=== PATIENT | female | born 1945 | race Two or more races ===

== ENCOUNTER 2017-03-13 17:31 | Emergency (ER) | payer OTHER ==
[2017-03-13 17:42] VITALS: BP 143/90; PULSE 71; TEMP 97.9; BMI 20.3
[2017-03-13] MEDS ORDERED: ACETAMINOPHEN 325 MG TABLET (FP) PO ONE (17:43)
--- NOTE | 2017-03-13 17:43 | PDOC ---
Rapid Medical Evaluation Chief Complaint: Lightheaded Time Seen by Provider: 03/13/17 17:41 Medical Evaluation: 03/13/17 17:41 I have performed a brief in-person evaluation of this patient. The patient presents with a chief complaint of: pain on right side of head after fall from bed Monday. Patient reports feeling dizzy today and loss of vision briefly. Complaining of lightheadedness Pertinent physical exam findings: HEENT: small superficial scabbed over lesion to right occiput PERRL NAD unlabored breathing I have ordered the following: analgesia, ekg The patient will proceed to the ED for further evaluation.
--- NOTE | 2017-03-13 19:27 | PDOC ---
Attending Attestation - HPI HPI: 03/13/17 21:14 with complaints of of lightheadedness s/p fall that occured monday afternoon. Patient reports laying down in her bed to go sleep when she lost her balance and feel off of the bed hitting the right backside of her head causing immediate pain. Patient states feeling fine after incident and was able to walk and cook herself meals. Patient reports experiencing blurred vision this afternoon while at home that began to worry her, prompting her to come to the ED for further evaluation. Patient is a Rastafari and states she will not take any blood products. Denies loss of consciousness. Denies chest pain, SOB. Denies nausea, vomiting. Denies fevers, chills. Denies any other symptoms. Allergies:None Social history: No smoking. No alcohol. No illicit drugs. Surgical history: Right shoulder surgeries. PMD: Dr. Keith Rincon - Physicial Exam PE: 03/13/17 21:14 Vitals: Triage Vital signs reviewed General Appearance: no acute distress, well nourished well developed Head: Atraumatic Eyes: Pupils equal reactive round, extraocular movement intact Chest Wall: Nontender Cardiac: Regular rate and rhythm, no murmurs, no rubs, no gallops Lungs: Clear to auscultation bilateral, good air movement bilaterally Abdomen: Soft, non distended, normal bowel sounds, non tender to palpation Extremities: Full range of motion to all extremities, no cyanosis, clubbing, or edema Skin: Warm and dry, no rashes or lesions, no rash, no petechiae Neuro: AOX3; Cranial Nerves 2-12 grossly intact, Strength intact to all extremities, Sensation intact to all extremities, gait normal Psych: Normal mood, normal affect - Medical Decision Making 03/13/17 21:14 Documentation prepared by Louie Cortez, acting as medical parasitologist for Josh Gillette MD, MD/DO. <Louie Cortez - Last Filed: 03/13/17 21:13> - Resident Resident Name: Priscila Beckham - ED Attending Attestation I have performed the following: I have examined & evaluated the patient, The case was reviewed & discussed with the resident, I agree w/resident's findings & plan, Exceptions are as noted - Medical Decision Making Well-appearing no apparent distress normal neurologic examination minor head trauma approximately 3 days ago today with very brief 1-2 minute episode of blurry vision resolved. Asymptomatic at this time. ABCD to risk stratification score very low risk. Patient provided with neurology follow-up No acute intervention needed at this time Findings, the need for follow-up and strict return instructions discussed with patient. 03/14/17 01:10 <Josh Gillette - Last Filed: 03/14/17 01:11>
--- NOTE | 2017-03-13 19:49 | PDOC ---
History of Present Illness - General Chief Complaint: Lightheaded Stated Complaint: Fall on Monday head trauma, dizziness Time Seen by Provider: 03/13/17 17:41 History Source: Patient Exam Limitations: No Limitations - History of Present Illness Initial Comments: This is a 71 YOF with h/o osteoarthritis and osteoporosis who p/w right posterior head pain s/p fall from bed three days ago with ongoing mild lightheadedness since that time as well as a fleeting episode of blurry vision this afternoon which she has never had before. She describes the fall as mechanical: she was getting ready to go to sleep for the night, sat up from laying down, accidentally lost her balance and fell forward, and fell to the floor, hitting the back of her head on the right side. She had no preceding symptoms, did not lost consciousness, was able to pick herself up and walk normally afterward, and has been able to eat, drink, shower, and otherwise perform her ADLs normally since then. Her family and friend say she has been acting normally per her baseline since then. She has had constant 2/10 pain to the area since that time and has taken Tylenol and rubbed Enzo's VapoRub on it. She denies any numbness, tingling, weakness, neck pain, chest pain, abdominal pain, palpitations, SOB, nausea, vomiting, black/bloody stool, or other recent symptoms. She did not see a doctor or other medical provider after the incident. She just started taking Meloxicam for shoulder pain and also takes gabapentin, but these are morning medications and were taken many hours before the fall three days ago. Past History - Past Medical History Allergies/Adverse Reactions: Allergies Allergy/AdvReac Type Severity Reaction Status Date / Time No Known Allergies Allergy Verified 03/13/17 17:42 COPD: No GI Disorders: Yes Other medical history: Osteoposis - Suicide/Smoking/Psychosocial Hx Smoking History: Never smoked Information on smoking cessation initiated: No Hx Alcohol Use: No Drug/Substance Use Hx: No Substance Use Type: None Review of Systems - Review of Systems Able to Perform ROS?: Yes Constitutional: No: Chills, Fever, Unexplained wgt Loss HEENTM: Yes: Blurred Vision (resolved). No: Nose Congestion, Throat Pain Respiratory: No: Cough, Shortness of Breath Cardiac (ROS): No: Chest Pain, Palpitations ABD/GI: No: Abdominal Distended, Nausea, Vomiting, Abdominal cramping : No: Burning, Dysuria Musculoskeletal: No: Back Pain, Neck Pain Integumentary: No: Bruising, Rash Neurological: Yes: Headache (right posterior), Other (lightheaded). No: Numbness, Tingling, Weakness Endocrine: No: Unexplained Weight Gain, Unexplained Weight Loss *Physical Exam - Vital Signs Last Vital Signs Temp Pulse Resp BP Pulse Ox 97.9 F 71 19 143/90 99 03/13/17 17:40 03/13/17 17:40 03/13/17 17:40 03/13/17 17:40 03/13/17 17:40 - Physical Exam General Appearance: Yes: Nourished, Appropriately Dressed, Other (very pleasant , mentally sharp, and appropriate older adult female in no distress, accompanied by a daughter and friend, Italian-speaking only, very well-appearing ). No: Apparent Distress HEENT: positive: EOMI, VIDAL, Normal Voice, Hearing Grossly Normal, Other (small right posterior inferior scalp contusion, no cephalohematoma, no pineda sign, no raccoon eyes, no hemotympanum, no CSF rhinorrhea or otorrhea). negative: Scleral Icterus (R), Scleral Icterus (L), Nasal Congestion Neck: positive: Trachea midline, Supple. negative: Tender, Rigid Respiratory/Chest: positive: Lungs Clear, Normal Breath Sounds. negative: Respiratory Distress, Crackles, Rhonchi, Stridor, Wheezing Cardiovascular: positive: Regular Rhythm, Regular Rate. negative: Murmur Gastrointestinal/Abdominal: positive: Normal Bowel Sounds, Soft. negative: Tender, Organomegaly, Pulsatile Mass, Guarding Musculoskeletal: positive: Normal Inspection. negative: Decreased Range of Motion, Vertebral Tenderness Extremity: positive: Normal Capillary Refill, Normal Inspection, Normal Range of Motion. negative: Tender, Cyanosis Integumentary: positive: Normal Color, Dry, Warm. negative: Erythema, Rash, Bruising Neurologic: positive: front desk attendant II-XII NML intact, Fully Oriented, Alert, Normal Mood/ Affect, Normal Response, Motor Strength 5/5, Other (no nystagmus on extreme lateral gaze, no truncal ataxia, negative Romberg, normal [id number], normal gait (walks backward without issue as well)). negative: EOM Palsy, Facial Droop, Numbness, Confused, Disoriented ED Treatment Course - LABORATORY CBC & Chemistry Diagram: 03/13/17 20:00 03/13/17 20:00 Medical Decision Making - Medical Decision Making 71 YOF with h/o osteoarthritis and osteoporosis who p/w right posterior head pain s/p fall from bed three days ago. Has persistent but mild lightheadedness since that time, also fleeting episode of blurred vision this afternoon. On exam VS wnl and she is A/Ox4, very well-appearing, no distress, small scalp contusion. DDX IBNLT SAH/SDH, concussion, scalp contusion, basilar skull fracture, etc. Ordered is CBCD, BMP, UA cx, EKG, head CT. 03/13/17 21:25 Lab work without any concerning acute findings or e/o infection or electrolyte derangement. Head CT is negative for acute bleed, obvious fracture, or other intracranial pathology. EKG without acute ischemic change, arrhythmia, or other concerning findings. The patient's repeat neurological exam is wnl. She is appropriate for DC home with close OP followup. Return precautions are discussed with patient and her family and neighbor. *DC/Admit/Observation/Transfer Diagnosis at time of Disposition: Fall from bed, initial encounter, Lightheadedness - Discharge Dispostion Disposition: HOME Condition at time of disposition: Stable Admit: No - Referrals Referrals: Keith Rincon PA [Primary Care Provider] - Melvin Dillard MD [Staff Physician] - - Patient Instructions Printed Discharge Instructions: DI for Concussion Additional Instructions: You were seen in the ER for lightheadedness, scalp pain, and a short episode of blurry vision about three days after a fall from bed during which you hit the back of your head. We did blood and urine labs, an electrocardiogram, and a head CT which were all normal. Please follow up with your regular doctor, or if you have continued symptoms you can follow up with a neurologist (we are providing referral information for Dr. Dillard's clinic). Please return to the ER for any new or worsening symptoms, especially loss of consciousness, repeated vision changes, numbness, tingling, weakness of one part of your body, difficulty walking, vomiting more than once, or other symptoms. Print Language: LATVIAN - Post Discharge Activity
[2017-03-13 20:15] LABS: BASO % 1.4 % (0-2.0); EOS % 3.8 % (0-4.5); HEMATOCRIT 35.9 % (32.4-45.2); LYMPH % 40.2 % (8-40); MCH 30.2 pg (25.7-33.7); MCHC 33.4 g/dl (32.0-36.0); MEAN CELL VOLUME 90.4 fl (80-96); MEAN PLT VOLUME 10.6 fl (7.5-11.1); MONO % 10.8 % (3.8-10.2); NEUT % 43.8 % (42.8-82.8); PLATELET COUNT 179 K/MM3 (134-434); RBC 3.97 M/mm3 (3.60-5.2); RDW 13.5 % (11.6-15.6); WHITE BLOOD COUNT 2.6 K/mm3 (4.0-10.0)
[2017-03-13] MEDS ORDERED: ACETAMINOPHEN 325 MG TABLET (FP) ONE (20:23)
[2017-03-13 20:41] LABS: URINE APPEARANCE CLEAR; URINE BILIRUBIN NEGATIVE (NEGATIVE); URINE BLOOD NEGATIVE (NEGATIVE); URINE COLOR STRAW; URINE GLUCOSE (UA) NEGATIVE (NEGATIVE); URINE KETONE NEGATIVE (NEGATIVE); URINE LEUK ESTERASE NEGATIVE (NEGATIVE); URINE NITRITE NEGATIVE (NEGATIVE); URINE PROTEIN NEGATIVE (NEGATIVE); URINE UROBILINOGEN NEGATIVE mg/dL (0.2-1.0)
[2017-03-13 20:52] LABS: ANION GAP 5 (8-16); BLOOD UREA NITROGEN 16 mg/dL (7-18); CALCIUM 8.3 mg/dL (8.5-10.1); CHLORIDE 110 mmol/L (98-107); CO2 29 mmol/L (21-32); GLUCOSE,RANDOM 103 mg/dL (74-106); SODIUM 144 mmol/L (136-145)
[2017-03-13 20:53] LABS: POTASSIUM 4.1 mmol/L (3.5-5.1)
[2017-03-13 22:35] LABS: PLATELET ESTIMATE ADEQUATE
--- NOTE | 2017-03-15 11:40 | EKG ---
Test Reason : Blood Pressure : / mmHG Vent. Rate : 066 BPM Atrial Rate : 066 BPM P-R Int : 160 ms QRS Dur : 084 ms QT Int : 426 ms P-R-T Axes : 065 020 036 degrees QTc Int : 446 ms NORMAL SINUS RHYTHM NORMAL ECG NO PREVIOUS ECGS AVAILABLE Confirmed by BALTA SANDERS, BETH ([id number]) on 03/15/2017 11:39:44 AM Referred By: Confirmed By:BETH GIFFORD MD
--- NOTE | 2017-03-29 13:25 | EKG ---
Test Reason : Blood Pressure : / mmHG Vent. Rate : 063 BPM Atrial Rate : 063 BPM P-R Int : 164 ms QRS Dur : 084 ms QT Int : 442 ms P-R-T Axes : 069 049 052 degrees QTc Int : 452 ms NORMAL SINUS RHYTHM POSSIBLE LEFT ATRIAL ENLARGEMENT LEFT VENTRICULAR HYPERTROPHY ABNORMAL ECG WHEN COMPARED WITH ECG OF 13-MAR-2017 17:49, NO SIGNIFICANT CHANGE WAS FOUND Confirmed by RACHEL CERRATO MD ([id number]) on 03/29/2017 1:25:31 PM Referred By: Confirmed By:RACHEL CERRATO MD
== END 2017-03-13 21:36 | disposition home or self-care (01) ==
LOC: JER 17:31
DX: R42 Dizziness and giddiness (principal); W06.XXXA Fall from bed, initial encounter; Y93.89 Activity, other specified; Y92.838 Other recreation area as the place of occurrence of the external cause
CPT/HCPCS: 36415; 70450-TC; 80048; 81003; 85025; 87086; 93005; 93010; 99283-25

== ENCOUNTER 2021-10-17 12:28 | Inpatient (IN) | payer OTHER ==
[2021-10-17 12:49] VITALS: BMI 21.2
[2021-10-17 14:31] LABS: BASO % 0.6 % (0-2.0); EOS % 0.3 % (0-4.5); HEMATOCRIT 37.5 % (32.4-45.2); HEMOGLOBIN 12.8 GM/dL (10.7-15.3); LYMPH % 7.3 % (8-40); MCH 30.6 pg (25.7-33.7); MCHC 34.1 g/dl (32.0-36.0); MEAN CELL VOLUME 89.8 fl (80-96); MEAN PLT VOLUME 9.3 fl (7.5-11.1); MONO % 2.9 % (3.8-10.2); NEUT % 88.9 % (42.8-82.8); PLATELET COUNT 185 10^3/uL (134-434); RBC 4.17 M/mm3 (3.60-5.2); WHITE BLOOD COUNT 5.3 K/mm3 (4.0-10.0)
[2021-10-17 14:43] LABS: CALCIUM 8.7 mg/dL (8.5-10.1)
[2021-10-17 14:44] LABS: ALBUMIN 3.7 g/dl (3.4-5.0); BLOOD UREA NITROGEN 19.6 mg/dL (7-18)
[2021-10-17 14:47] LABS: CREATININE 1.1 mg/dL (0.55-1.3)
[2021-10-17 14:48] LABS: TOT PROT 6.7 g/dl (6.4-8.2)
[2021-10-17 14:49] LABS: BILIRUBIN,TOTAL 0.4 mg/dL (0.2-1)
[2021-10-17 18:43] LABS: URINE APPEARANCE CLEAR; URINE BILIRUBIN NEGATIVE (NEGATIVE); URINE COLOR YELLOW; URINE GLUCOSE (UA) NEGATIVE (NEGATIVE); URINE KETONE NEGATIVE (NEGATIVE); URINE LEUK ESTERASE NEGATIVE (NEGATIVE); URINE NITRITE NEGATIVE (NEGATIVE); URINE PROTEIN NEGATIVE (NEGATIVE); URINE UROBILINOGEN 0.2 mg/dL (0.2-1.0)
[2021-10-17] MEDS ORDERED: FAMOTIDINE 10 MG TABLET ONE (21:40)
[2021-10-17] MEDS ORDERED: OLANZapine 5 MG TABLET PO SCH (22:00)
[2021-10-17] MEDS ORDERED: FAMOTIDINE 10 MG TABLET PO SCH (22:00)
[2021-10-18] MEDS ORDERED: amLODIPine BESYLATE 5 MG TABLET (FP) ONE (08:53)
[2021-10-18] MEDS ORDERED: FAMOTIDINE 20 MG TABLET ONE (08:53)
[2021-10-18] MEDS ORDERED: DONEPEZIL HCL 5 MG TABLET (FP) ONE (08:53)
[2021-10-18] MEDS ORDERED: ENOXAPARIN NA (PORCINE) 40 MG/0.4 ML DISP.SYRIN SQ ONE (08:54)
[2021-10-18] MEDS: FAMOTIDINE 20 MG TABLET PO SCH (09:10)
[2021-10-18] MEDS ORDERED: predniSONE 10 MG TABLET (UD) PO SCH (10:00)
[2021-10-18] MEDS ORDERED: amLODIPine BESYLATE 5 MG TABLET (FP) PO SCH (10:00)
[2021-10-18] MEDS ORDERED: DONEPEZIL HCL 5 MG TABLET (FP) PO SCH (10:00)
[2021-10-18] MEDS ORDERED: MEMANTINE HCL 10 MG TABLET (FP) PO SCH (10:00)
[2021-10-18] MEDS: predniSONE 10 MG TABLET (UD) PO SCH (10:43)
[2021-10-18] MEDS: amLODIPine BESYLATE 5 MG TABLET (FP) PO SCH (10:44)
[2021-10-18] MEDS: MEMANTINE HCL 10 MG TABLET (FP) PO SCH (10:44)
[2021-10-18] MEDS: ENOXAPARIN NA (PORCINE) 40 MG/0.4 ML DISP.SYRIN SQ SCH (10:44)
[2021-10-18] MEDS ORDERED: OLANZapine 10 MG TABLET ONE (21:11)
[2021-10-18] MEDS: OLANZapine 10 MG TABLET PO SCH (21:16)
[2021-10-19] MEDS ORDERED: HALOPERIDOL LACTATE 5 MG/ML IV ONE (02:50)
[2021-10-19] MEDS ORDERED: HALOPERIDOL LACTATE 5 MG/ML IM ONE ×2 (02:50→03:57)
[2021-10-19] MEDS: HALOPERIDOL LACTATE 5 MG/ML IM ONE ×2 (02:51→03:11)
[2021-10-19] MEDS: FAMOTIDINE 20 MG TABLET PO SCH (06:32)
[2021-10-19] MEDS: MEMANTINE HCL 10 MG TABLET (FP) PO SCH (10:06)
[2021-10-19] MEDS: predniSONE 10 MG TABLET (UD) PO SCH (10:06)
[2021-10-19] MEDS: amLODIPine BESYLATE 5 MG TABLET (FP) PO SCH (10:06)
[2021-10-19] MEDS: ENOXAPARIN NA (PORCINE) 40 MG/0.4 ML DISP.SYRIN SQ SCH (10:07)
[2021-10-19] MEDS ORDERED: hydrOXYzine HCL 100 MG/2 ML VIAL IM PRN (16:39)
[2021-10-19] MEDS: OLANZapine 10 MG TABLET PO SCH (21:08)
[2021-10-19] MEDS: hydrOXYzine HCL 50 MG/ML VIAL IM PRN (22:35)
[2021-10-20] MEDS ORDERED: MELATONIN 5 MG TABLETS PO PRN (01:15)
[2021-10-20] MEDS ORDERED: HALOPERIDOL LACTATE 5 MG/ML IM ONE (03:04)
[2021-10-20] MEDS: FAMOTIDINE 20 MG TABLET PO SCH (06:09)
[2021-10-20 07:48] LABS: HEMATOCRIT 39.8 % (32.4-45.2); HEMOGLOBIN 13.3 GM/dL (10.7-15.3); MCH 30.3 pg (25.7-33.7); MCHC 33.4 g/dl (32.0-36.0); MEAN CELL VOLUME 90.9 fl (80-96); PLATELET COUNT 180 10^3/uL (134-434); RBC 4.38 M/mm3 (3.60-5.2); RDW 13.9 % (11.6-15.6)
[2021-10-20 08:21] LABS: CALCIUM 8.7 mg/dL (8.5-10.1)
[2021-10-20 08:22] LABS: BLOOD UREA NITROGEN 18.1 mg/dL (7-18)
[2021-10-20] MEDS: ENOXAPARIN NA (PORCINE) 40 MG/0.4 ML DISP.SYRIN SQ SCH (09:32)
[2021-10-20] MEDS: predniSONE 5 MG TABLET (UD) PO SCH (09:33)
[2021-10-20] MEDS: amLODIPine BESYLATE 5 MG TABLET (FP) PO SCH (09:35)
[2021-10-20] MEDS: MEMANTINE HCL 10 MG TABLET (FP) PO SCH (09:58)
[2021-10-20] MEDS: QUEtiapine FUMARATE 25 MG TABLET PO SCH (20:08)
[2021-10-20] MEDS: MELATONIN 5 MG TABLETS PO SCH (20:08)
[2021-10-20] MEDS ORDERED: QUEtiapine FUMARATE 25 MG TABLET PO SCH (22:00)
[2021-10-20] MEDS ORDERED: ACETAMINOPHEN 325 MG TABLET (FP) PO PRN (23:03)
[2021-10-21] MEDS: FAMOTIDINE 20 MG TABLET PO SCH (06:10)
[2021-10-21] MEDS: ENOXAPARIN NA (PORCINE) 40 MG/0.4 ML DISP.SYRIN SQ SCH (09:25)
[2021-10-21] MEDS: predniSONE 5 MG TABLET (UD) PO SCH (09:25)
[2021-10-21] MEDS: amLODIPine BESYLATE 5 MG TABLET (FP) PO SCH (09:26)
[2021-10-21] MEDS: MEMANTINE HCL 10 MG TABLET (FP) PO SCH (09:26)
[2021-10-21 09:48] LABS: BLOOD UREA NITROGEN 19.4 mg/dL (7-18); CALCIUM 8.3 mg/dL (8.5-10.1)
[2021-10-21 09:52] LABS: CREATININE 0.9 mg/dL (0.55-1.3)
[2021-10-21] MEDS ORDERED: POTASSIUM CHLORIDE TABS 20 MEQ TABLET.ER (FP) PO ONE (18:26)
[2021-10-21] MEDS: MELATONIN 5 MG TABLETS PO SCH (21:01)
[2021-10-21] MEDS: QUEtiapine FUMARATE 25 MG TABLET PO SCH (21:01)
[2021-10-22] MEDS: FAMOTIDINE 20 MG TABLET PO SCH (06:34)
[2021-10-22 08:58] LABS: CALCIUM 9.3 mg/dL (8.5-10.1)
[2021-10-22 08:59] LABS: BLOOD UREA NITROGEN 21.3 mg/dL (7-18); MAGNESIUM 2.4 mg/dL (1.8-2.4)
[2021-10-22 09:02] LABS: PHOSPHOROUS 3.4 mg/dL (2.5-4.9)
[2021-10-22] MEDS: predniSONE 5 MG TABLET (UD) PO SCH (09:22)
[2021-10-22] MEDS: ENOXAPARIN NA (PORCINE) 40 MG/0.4 ML DISP.SYRIN SQ SCH (09:23)
[2021-10-22] MEDS: amLODIPine BESYLATE 5 MG TABLET (FP) PO SCH (09:23)
[2021-10-22] MEDS: MEMANTINE HCL 10 MG TABLET (FP) PO SCH (09:25)
[2021-10-22] MEDS: QUEtiapine FUMARATE 25 MG TABLET PO SCH (20:21)
[2021-10-22] MEDS: MELATONIN 5 MG TABLETS PO SCH (20:21)
[2021-10-23] MEDS: hydrOXYzine HCL 50 MG/ML VIAL IM PRN (01:43)
[2021-10-23] MEDS: FAMOTIDINE 20 MG TABLET PO SCH (06:10)
[2021-10-23] MEDS: predniSONE 5 MG TABLET (UD) PO SCH (09:03)
[2021-10-23] MEDS: ENOXAPARIN NA (PORCINE) 40 MG/0.4 ML DISP.SYRIN SQ SCH (09:03)
[2021-10-23] MEDS: amLODIPine BESYLATE 5 MG TABLET (FP) PO SCH (09:04)
[2021-10-23] MEDS: MEMANTINE HCL 10 MG TABLET (FP) PO SCH (09:08)
[2021-10-23] MEDS: MELATONIN 5 MG TABLETS PO SCH (20:20)
[2021-10-23] MEDS: QUEtiapine FUMARATE 25 MG TABLET PO SCH (20:21)
[2021-10-24] MEDS: FAMOTIDINE 20 MG TABLET PO SCH (06:17)
[2021-10-24] MEDS: predniSONE 5 MG TABLET (UD) PO SCH (10:05)
[2021-10-24] MEDS: ENOXAPARIN NA (PORCINE) 40 MG/0.4 ML DISP.SYRIN SQ SCH (10:06)
[2021-10-24] MEDS: amLODIPine BESYLATE 5 MG TABLET (FP) PO SCH (10:09)
[2021-10-24] MEDS: MEMANTINE HCL 10 MG TABLET (FP) PO SCH (10:09)
[2021-10-24] MEDS: QUEtiapine FUMARATE 25 MG TABLET PO SCH (20:55)
[2021-10-24] MEDS: MELATONIN 5 MG TABLETS PO SCH (20:55)
[2021-10-25] MEDS: FAMOTIDINE 20 MG TABLET PO SCH (06:20)
[2021-10-25 09:28] VITALS: BP 139/78; PULSE 115; RESP 16; TEMP 99
[2021-10-25] MEDS: amLODIPine BESYLATE 5 MG TABLET (FP) PO SCH (09:28)
[2021-10-25] MEDS: predniSONE 5 MG TABLET (UD) PO SCH (09:28)
[2021-10-25] MEDS: MEMANTINE HCL 10 MG TABLET (FP) PO SCH (09:28)
[2021-10-25] MEDS: ENOXAPARIN NA (PORCINE) 40 MG/0.4 ML DISP.SYRIN SQ SCH (09:31)
== END 2021-10-25 16:07 | disposition home or self-care (01) | DRG 57 ==
LOC: JER 12:28 → JERBED 17:36 → J4S 10-19 03:04 → OBSVTOIN 10-19 11:31 → J4S 10-20 20:05 → J4W 10-23 18:26
PROVIDERS: ADMIT Internal Medicine; ATTEND Internal Medicine
DX: G31.83 Neurocognitive disorder with Lewy bodies (principal); F02.81 Dementia in other diseases classified elsewhere, unspecified severity, with behavioral disturbance; M81.8 Other osteoporosis without current pathological fracture; H40.9 Unspecified glaucoma; I10 Essential (primary) hypertension; R45.1 Restlessness and agitation; K29.70 Gastritis, unspecified, without bleeding; M31.6 Other giant cell arteritis
CPT/HCPCS: 36415; 70450-TC; 71045-TC-FY; 80048; 80053; 81003; 83735; 84100; 84443; 84484; 85025; 85027; 93005; 93010; 97116-GP; 97161-GP; 99285-25; C9803-CS; G0378; U0003; U0005

== ENCOUNTER 2022-08-10 00:47 | Emergency (ER) | payer OTHER ==
[2022-08-10 01:03] VITALS: BP 139/93; PULSE 100; RESP 18; TEMP 98.3; BMI 21.7
[2022-08-10] MEDS ORDERED: MAGNESIUM CITRATE 300 ML BOTTLE ONE (01:40)
== END 2022-08-10 01:47 | disposition home or self-care (01) ==
LOC: FER 00:47
DX: K59.00 Constipation, unspecified (principal); R11.10 Vomiting, unspecified
CPT/HCPCS: 74019-TC-FY; 99283-25

== ENCOUNTER 2023-08-14 15:03 | Emergency (ER) | payer OTHER ==
[2023-08-14] MEDS ORDERED: ACETAMINOPHEN INJECTION 100 ML IVPB ONE (16:06)
[2023-08-14] MEDS ORDERED: FAMOTIDINE 20 MG/50 ML IVPB 20 MG/50 ML MG IVPB ONE (16:09)
[2023-08-14 16:21] VITALS: TEMP 97.6; BMI 20.5
[2023-08-14 16:53] LABS: HEMATOCRIT 34.6 % (32.4-45.2); HEMOGLOBIN 11.6 GM/dL (10.7-15.3); MCH 30.1 pg (25.7-33.7); MCHC 33.6 g/dl (32.0-36.0); MEAN CELL VOLUME 89.4 fl (80-96); MEAN PLT VOLUME 8.8 fl (7.5-11.1); PLATELET COUNT 200 10^3/uL (134-434); RBC 3.87 M/mm3 (3.60-5.2); RDW 14.6 % (11.6-15.6); WHITE BLOOD COUNT 2.1 K/mm3 (4.0-10.0)
[2023-08-14] MEDS: ACETAMINOPHEN 1000 MG/100 ML BAG IVPB ONE (16:53)
[2023-08-14] MEDS: FAMOTIDINE 20 MG/50 ML IVPB 20 MG/50 ML MG IVPB ONE (16:54)
[2023-08-14] MEDS: LACTATED RINGERS SOLUTION 1000 ML INFUS.BAG IV ONE (16:54)
[2023-08-14 17:16] LABS: POTASSIUM 4.2 mmol/L (3.5-5.1)
[2023-08-14 17:19] LABS: ALBUMIN 3.3 g/dl (3.4-5.0); BLOOD UREA NITROGEN 23.3 mg/dL (7-18); CALCIUM 8.4 mg/dL (8.5-10.1); MAGNESIUM 2.8 mg/dL (1.8-2.4)
[2023-08-14 17:22] LABS: PHOSPHOROUS 3.2 mg/dL (2.5-4.9)
[2023-08-14 17:24] LABS: BILIRUBIN,TOTAL 0.3 mg/dL (0.2-1); TOT PROT 6.9 g/dl (6.4-8.2)
[2023-08-14 17:25] LABS: CREATININE 1.3 mg/dL (0.55-1.3)
[2023-08-14 17:44] LABS: ANISOCYTOSIS 1+; MACROCYTOSIS 0; PLATELET ESTIMATE NORMAL
[2023-08-14 18:17] LABS: EPI CELLS 2 /uL (0-25.1); HYALINE CASTS 0 /uL (0-3.1); URINE APPEARANCE CLEAR; URINE BACTERIA 4935 /uL (0-1359); URINE BILIRUBIN NEGATIVE (NEGATIVE); URINE COLOR YELLOW; URINE GLUCOSE (UA) NEGATIVE (NEGATIVE); URINE KETONE NEGATIVE (NEGATIVE); URINE LEUK ESTERASE 2+ (NEGATIVE); URINE NITRITE POSITIVE (NEGATIVE); URINE PROTEIN TRACE (NEGATIVE); URINE RBC 8 /uL (0-23.9); URINE WBC 131 /uL (0-25.8)
[2023-08-14 19:59] VITALS: BP 136/84
[2023-08-14] MEDS ORDERED: CEFTRIAXONE 1 GM/50 ML BAG ONE (20:04)
[2023-08-14 20:25] VITALS: PULSE 84; RESP 14
[2023-08-14 21:04] LABS: N-TERMINAL BNP 148.3 pg/ml (5-450)
== END 2023-08-14 20:53 | disposition home or self-care (01) ==
LOC: JER 15:03
PROC: 3E033GC Introduction of Other Therapeutic Substance into Peripheral Vein, Percutaneous Approach (ICD-10-PCS; principal; 2023-08-14)
PROC: 3E033NZ Introduction of Analgesics, Hypnotics, Sedatives into Peripheral Vein, Percutaneous Approach (ICD-10-PCS; 2023-08-14)
PROC: 3E03329 Introduction of Other Anti-infective into Peripheral Vein, Percutaneous Approach (ICD-10-PCS; 2023-08-14)
DX: N39.0 Urinary tract infection, site not specified (principal); R07.9 Chest pain, unspecified; R10.30 Lower abdominal pain, unspecified; R53.1 Weakness; R05.9 Cough, unspecified; R53.83 Other fatigue; Z20.822 Contact with and (suspected) exposure to COVID-19
CPT/HCPCS: 0241U-QW; 70450-TC; 71045-TC-FY; 80053; 81003; 82550; 83735; 83880; 84100; 84484; 85025; 86850; 86900; 86901; 87086; 87186; 93005; 93010; 96365; 96375; 99285-25; J0131